=== PATIENT | female | born 1985 | race Caucasian/White ===

== ENCOUNTER 2017-11-01 11:48 | Emergency (ER) | payer BC, MEDICAID ==
[~2017-11-01] VITALS: Ht 154.9 cm; Wt 70.9 kg
[~2017-11-01 11:48] MED LIST: LISI1TAB5 PO
[2017-11-01] MEDS ORDERED: ALBU0.63 NEB (12:15)
[2017-11-01] MEDS ORDERED: PANT20TA3 PO (12:15)
[2017-11-01 12:35] LABS: MICROSCOPIC INDICATED
[2017-11-01 12:39] LABS: BASOPHILS # (AUTO) 0.04 x10^3/uL (0-0.1); BASOPHILS % (AUTO) 1 % (0-1); EOSINOPHILS # (AUTO) 0.21 x10^3/uL (0-0.4); EOSINOPHILS % (AUTO) 3 % (1-7); LYMPHOCYTES # (AUTO) 2.66 x10^3/uL (1-3.4); LYMPHOCYTES % (AUTO) 35 % (22-44); MD NO; MEAN CORPUSCULAR HEMOGLOBIN 33.1 pg (27.0-34.8); MEAN CORPUSCULAR VOLUME 97.3 fL (80-100); MEAN PLATELET VOLUME 8.1 fL (7.4-10.4); MONOCYTES % (AUTO) 5 % (2-9); NEUTROPHILS # (AUTO) 4.21 x10^3/uL (1.8-6.8); NEUTROPHILS % (AUTO) 56 % (42-75); PLATELET COUNT 315 x10^3/uL (130-400); RED BLOOD COUNT 4.34 x10^6/uL (3.82-5.3); RED CELL DISTRIBUTION WIDTH 12.8 % (9.6-15.2)
[2017-11-01 12:40] LABS: CULTURE INDICATED? NO
[2017-11-01 12:52] LABS: ALANINE AMINOTRANSFERASE 32 U/L (12-78); ALBUMIN 3.4 g/dL (3.4-5.0); ANION GAP 7 mmol/L (5-15); CALCIUM 8.6 mg/dL (8.5-10.1); CHLORIDE 107 mmol/L (98-107); CREATININE 0.77 mg/dL (0.55-1.02)
[2017-11-01 12:57] LABS: ALKALINE PHOSPHATASE 67 U/L (45-117); BILIRUBIN,TOTAL 0.3 mg/dL (0.2-1.0); TOTAL PROTEIN 6.6 g/dL (6.4-8.2)
[2017-11-01 13:23] VITALS: BP 145/82
== END 2017-11-01 14:17 | disposition home or self-care (01) ==
LOC: ED 14:10
DX: R19.7 Diarrhea, unspecified (principal); I10 Essential (primary) hypertension; J45.909 Unspecified asthma, uncomplicated
CPT/HCPCS: 36415; 74021; 80053; 81001; 83690; 84703; 85025; 99285

== ENCOUNTER 2017-11-12 16:11 | Emergency (ER) | payer BC, MEDICAID ==
[~2017-11-12] VITALS: Ht 154.9 cm; Wt 71.2 kg
[~2017-11-12 16:11] MED LIST changes: +ALBU0.63 NEB; +PANT20TA3 PO
[2017-11-12 18:03] VITALS: BP 120/89
[2017-11-12] MEDS ORDERED: ACETAMINOPHEN 500 MG TABLET ONE (19:39)
[2017-11-12] MEDS ORDERED: ACETAMINOPHEN 500 MG TABLET PO ONE (20:00)
== END 2017-11-12 20:52 | disposition home or self-care (01) ==
LOC: ED 20:50
DX: S06.0X0A Concussion without loss of consciousness, initial encounter (principal); S16.1XXA Strain of muscle, fascia and tendon at neck level, initial encounter; S46.012A Strain of muscle(s) and tendon(s) of the rotator cuff of left shoulder, initial encounter; S46.812A Strain of other muscles, fascia and tendons at shoulder and upper arm level, left arm, initial encounter; I10 Essential (primary) hypertension; J45.909 Unspecified asthma, uncomplicated; Z90.710 Acquired absence of both cervix and uterus; Y04.0XXA Assault by unarmed brawl or fight, initial encounter; Y93.89 Activity, other specified; Y92.098 Other place in other non-institutional residence as the place of occurrence of the external cause; Y99.8 Other external cause status
CPT/HCPCS: 70450; 72050; 99284

== ENCOUNTER 2018-11-21 03:23 | Inpatient (IN) | payer BC, MEDICAID, OTHER ==
[~2018-11-21] VITALS: Ht 157.5 cm; Wt 68.9 kg
--- NOTE | 2018-11-21 03:45 | NUR ---
PT IN HOSPITAL GOWN. ALL BELONGINGS BAGGED TAGGED AND PLACED IN CLOTHING CLOSET. PT STATED HER LAST SA WAS WITH PILLS A FEW YEARS AGO. PT ON CARDIAC AND VITALS MONITORS. PT STATED SHE IS SUPPOSED TO BE ON WELLBUTRIN, BUT TOOK HERSELF OFF, FOR UNKNOWN REASON AT THIS TIME.
[2018-11-21 03:48] LABS: BASOPHILS # (AUTO) 0.13 x10^3/uL (0-0.1); BASOPHILS % (AUTO) 2 % (0-1); EOSINOPHILS # (AUTO) 0.15 x10^3/uL (0-0.4); EOSINOPHILS % (AUTO) 2 % (1-7); LYMPHOCYTES # (AUTO) 3.03 x10^3/uL (1-3.4); LYMPHOCYTES % (AUTO) 41 % (22-44); MD NO; MEAN CORPUSCULAR HEMOGLOBIN 31.3 pg (27.0-34.8); MEAN CORPUSCULAR HGB CONC 32.2 g/dL (32.4-35.8); MEAN CORPUSCULAR VOLUME 96.9 fL (80-100); MEAN PLATELET VOLUME 7.8 fL (7.4-10.4); MONOCYTES # (AUTO) 0.16 x10^3/uL (0.2-0.8); MONOCYTES % (AUTO) 2 % (2-9); NEUTROPHILS # (AUTO) 3.86 x10^3/uL (1.8-6.8); NEUTROPHILS % (AUTO) 53 % (42-75); PLATELET COUNT 312 x10^3/uL (130-400); RED BLOOD COUNT 4.72 x10^6/uL (3.82-5.3); RED CELL DISTRIBUTION WIDTH 13.1 % (9.6-15.2)
[2018-11-21 03:54] LABS: ALANINE AMINOTRANSFERASE 19 U/L (12-78); ALBUMIN 3.7 g/dL (3.4-5.0); ANION GAP 11 mmol/L (5-15); CALCIUM 8.6 mg/dL (8.5-10.1); CHLORIDE 108 mmol/L (98-107); CREATININE 0.76 mg/dL (0.55-1.02)
[2018-11-21 04:01] LABS: ACETAMINOPHEN < 2 mcg/mL (10-30); ALKALINE PHOSPHATASE 80 U/L (45-117); BILIRUBIN,TOTAL 0.1 mg/dL (0.2-1.0); SALICYLATE LEVEL 2.8 mg/dL (2.8-20.0); TOTAL PROTEIN 6.8 g/dL (6.4-8.2)
[2018-11-21 04:29] LABS: AMPHETAMINE SCREEN, URINE Positive (Negative); BARBITURATE SCREEN, URINE Negative (Negative); BENZODIAZEPINE SCREEN, URINE Negative (Negative); CANNABINOID SCREEN, URINE Positive (Negative); COCAINE SCREEN, URINE Negative (Negative); METHADONE SCREEN, URINE Negative (Negative); OPIATE SCREEN, URINE Negative (Negative)
[2018-11-21] MEDS ORDERED: PROMETHAZINE 25 MG/ML, 1ML IM PRN (05:00)
[2018-11-21] MEDS ORDERED: POTASSIUM CHLORIDE 20 MEQ TAB.ER.PRT PO ONE (05:00)
[2018-11-21] MEDS ORDERED: LABETALOL 5MG/ML, 20ML IVPush PRN (05:00)
[2018-11-21] MEDS: ENOXAPARIN 40 MG/0.4 ML SQ SCH (05:00)
[2018-11-21] MEDS ORDERED: ACETAMINOPHEN 325 MG TABLET PO PRN (05:00)
--- NOTE | 2018-11-21 05:04 | NUR ---
REPORT TO NANO LOZADA FOR ROOM 426 WITH SITTER.
--- NOTE | 2018-11-21 05:10 | NUR ---
PT ELOPED OUT AMBULANCE BAY. PT WAS UNABLE TO BE REDIRECTED BACK TO ROOM. SECURITY WAS CALLED. [employer] WAS CALLED.
--- NOTE | 2018-11-21 05:18 | NUR ---
went in to tell pt that she was being admitted to floor. found pt with IV pulled out and blood dripping on floor as pt was cleaning her arm. this RN asked pt what she is doing. pt stated I'm leaving, I don't want to be here. pt made aware that she is on a legal hold placed by the police. pt shouted, "for 6 fucking pills??!!. I'm not staying". ASked pt if i could inform the ERP about her wanting to leave, pt stated that's fine. ERP made aware, stated pt can not leave due to legal hold. charge made aware also of pts' intention to leave. pt informed that she can not leave. pt stated, "well i'm not staying just to go to a mental facility". pt walked out of room in hospital gown and no shoes. charge aware pt left. security called and [employer] called as well. pt found in ambulance bay by security and brought back to ER. This RN explained to pt again, why she has to stay. PT again shouted, "for 6 fucking pills, No, give me my stuff!!" pt attempted to walk out of room again security assited pt back to bed. Restraints applied. 4th floor RN updated to pt current situation.
--- NOTE | 2018-11-21 05:31 | NUR ---
PT UPSET AND TEARFUL AND CURSING. DOES NOT WANT TO TALK TO THIS RN NOR RT AT THIS TIME. IS ASKING TO BE LEFT ALONE. WILL CONTINUE TO MONITOR.
[2018-11-21] MEDS ORDERED: ZIPRASIDONE 20 MG INJ IM ONE ×2 (05:42→06:00)
--- NOTE | 2018-11-21 06:02 | NUR ---
PT HAS RELAXED SOME. PT AGREEABLE TO ORDERED IM [facility] AFTER EXPLAINATION OF MED. PT ALSO ALLOWED IV AND MONITORS TO BE PLACED. SECURITY CALLED TO ASSIST WITH TRANFER UPSTAIRS. NANO LOZADA AWARE.
[2018-11-21 06:32] VITALS: BP 137/96
[2018-11-21 08:00] VITALS: BP 108/73
[2018-11-21] MEDS: POTASSIUM CHLORIDE 20 MEQ, MAGNESIUM SULFATE 2 GM, THIAMINE 200 MG, MVI ADULT 10 ML, FO... IV SCH ×2 (08:19→18:26)
[2018-11-21 14:00] VITALS: BP 124/72
[2018-11-21 15:51] VITALS: BP 132/70
[2018-11-21] MEDS: NICOTINE 14MG/24 HR PATCH.TD24 TD SCH (17:09)
[2018-11-21 18:57] VITALS: BP 132/86
[2018-11-22] MEDS: POTASSIUM CHLORIDE 20 MEQ, MAGNESIUM SULFATE 2 GM, THIAMINE 200 MG, MVI ADULT 10 ML, FO... IV SCH (01:17)
[2018-11-22 03:36] VITALS: BP 143/95
[2018-11-22] MEDS: ENOXAPARIN 40 MG/0.4 ML SQ SCH (04:24)
[2018-11-22] MEDS: NICOTINE 14MG/24 HR PATCH.TD24 TD SCH (04:25)
[2018-11-22 04:57] LABS: CHLORIDE 110 mmol/L (98-107)
[2018-11-22 05:04] LABS: ANION GAP 5 mmol/L (5-15); CALCIUM 8.1 mg/dL (8.5-10.1); CREATININE 0.76 mg/dL (0.55-1.02)
[2018-11-22 07:44] VITALS: BP 132/94
[2018-11-22] MEDS ORDERED: LORazepam 1MG TABLET PO PRN (09:30)
[2018-11-22] MEDS ORDERED: LORazepam 0.5MG TABLET PO PRN (09:30)
[2018-11-22] MEDS: THIAMINE 100MG TABLET PO SCH (10:00)
[2018-11-22] MEDS: MULTIVIT.W/IRON, MINERALS ORAL SOL PO SCH (10:00)
[2018-11-22] MEDS: FOLIC ACID 1 MG TABLET PO SCH (10:01)
[2018-11-22 13:53] VITALS: BP 136/94
[2018-11-22 20:04] VITALS: BP 156/117
[2018-11-22] MEDS ORDERED: hydrALAzine 20 MG/ML, 1ML IV PRN (20:30)
[2018-11-22] MEDS: FAMOTIDINE 20 MG TABLET PO SCH (20:54)
[2018-11-22 21:27] VITALS: BP 132/90
[2018-11-23 01:14] VITALS: BP 116/82
[2018-11-23] MEDS: NICOTINE 14MG/24 HR PATCH.TD24 TD SCH (04:43)
[2018-11-23] MEDS: ENOXAPARIN 40 MG/0.4 ML SQ SCH (04:43)
[2018-11-23 07:06] VITALS: BP 136/95
[2018-11-23] MEDS: MULTIVIT.W/IRON, MINERALS ORAL SOL PO SCH (08:07)
[2018-11-23] MEDS: FOLIC ACID 1 MG TABLET PO SCH (08:07)
[2018-11-23] MEDS: THIAMINE 100MG TABLET PO SCH (08:07)
[2018-11-23] MEDS: BUDESONIDE 0.5 MG/2 ML INHA HHN SCH ×2 (10:30→20:30)
[2018-11-23] MEDS ORDERED: FLUTICASONE/VILANTEROL 200-25MCG/INH INH SCH (10:30)
[2018-11-23] MEDS: ALBUTEROL SULFATE 2.5 MG/3 ML HHN SCH ×3 (10:30→20:30)
[2018-11-23 12:30] VITALS: BP 144/105
[2018-11-23] MEDS: LORazepam 1MG TABLET PO PRN (13:08)
[2018-11-23 13:38] VITALS: BP 144/105
[2018-11-23 19:49] VITALS: BP 127/86
[2018-11-23] MEDS: FAMOTIDINE 20 MG TABLET PO SCH (20:12)
[2018-11-24] MEDS: ALBUTEROL SULFATE 2.5 MG/3 ML HHN SCH ×2 (02:59→07:03)
[2018-11-24] MEDS: ENOXAPARIN 40 MG/0.4 ML SQ SCH (07:02)
[2018-11-24 07:24] VITALS: BP 130/94
[2018-11-24] MEDS: NICOTINE 14MG/24 HR PATCH.TD24 TD SCH (08:22)
[2018-11-24] MEDS: FOLIC ACID 1 MG TABLET PO SCH (08:22)
[2018-11-24] MEDS: THIAMINE 100MG TABLET PO SCH (08:22)
[2018-11-24] MEDS: MULTIVIT.W/IRON, MINERALS ORAL SOL PO SCH (08:23)
[2018-11-24] MEDS: FLUTICASONE/VILANTEROL 200-25MCG/INH INH SCH (11:39)
[2018-11-24] MEDS: LORazepam 1MG TABLET PO PRN ×2 (12:57→20:47)
[2018-11-24 19:01] VITALS: BP 144/99
[2018-11-24] MEDS: FAMOTIDINE 20 MG TABLET PO SCH (20:47)
[2018-11-25] MEDS: ENOXAPARIN 40 MG/0.4 ML SQ SCH (05:00)
[2018-11-25] MEDS: MULTIVITAMIN 1 TABLET PO SCH (07:47)
[2018-11-25] MEDS: THIAMINE 100MG TABLET PO SCH (07:47)
[2018-11-25] MEDS: FOLIC ACID 1 MG TABLET PO SCH (07:47)
[2018-11-25] MEDS: FLUTICASONE/VILANTEROL 200-25MCG/INH INH SCH (07:48)
[2018-11-25] MEDS: NICOTINE 14MG/24 HR PATCH.TD24 TD SCH (07:48)
[2018-11-25 08:32] VITALS: BP 144/101
[2018-11-25] MEDS: LISINOPRIL 20 MG TABLET PO SCH (08:54)
[2018-11-25] MEDS: HYDROCHLOROTHIAZIDE 12.5 MG CAPSULE PO SCH (09:28)
[2018-11-25 09:56] VITALS: BP 147/99
[2018-11-25 12:06] VITALS: BP 133/90
[2018-11-25 20:00] VITALS: BP 130/90
[2018-11-25] MEDS: LORazepam 1MG TABLET PO PRN (20:21)
[2018-11-25] MEDS: FAMOTIDINE 20 MG TABLET PO SCH (20:21)
[2018-11-26] MEDS: ENOXAPARIN 40 MG/0.4 ML SQ SCH (05:00)
[2018-11-26 07:13] VITALS: BP 148/98
[2018-11-26] MEDS: FOLIC ACID 1 MG TABLET PO SCH (09:24)
[2018-11-26] MEDS: HYDROCHLOROTHIAZIDE 12.5 MG CAPSULE PO SCH (09:24)
[2018-11-26] MEDS: MULTIVITAMIN 1 TABLET PO SCH (09:24)
[2018-11-26] MEDS: THIAMINE 100MG TABLET PO SCH (09:25)
[2018-11-26] MEDS: LISINOPRIL 20 MG TABLET PO SCH (09:25)
[2018-11-26] MEDS: FLUTICASONE/VILANTEROL 200-25MCG/INH INH SCH (09:33)
[2018-11-26] MEDS: NICOTINE 14MG/24 HR PATCH.TD24 TD SCH (09:36)
[2018-11-26] MEDS: DIVALPROEX 500 MG TABLET.DR PO SCH (17:38)
[2018-11-26 19:20] VITALS: BP 136/80
[2018-11-26] MEDS: FAMOTIDINE 20 MG TABLET PO SCH (20:44)
[2018-11-26] MEDS: LORazepam 1MG TABLET PO PRN (20:44)
[2018-11-27] MEDS: ENOXAPARIN 40 MG/0.4 ML SQ SCH (05:00)
[2018-11-27 07:05] VITALS: BP 138/90
[2018-11-27] MEDS: DIVALPROEX 500 MG TABLET.DR PO SCH (07:28)
[2018-11-27] MEDS: FLUTICASONE/VILANTEROL 200-25MCG/INH INH SCH (08:30)
[2018-11-27] MEDS: HYDROCHLOROTHIAZIDE 12.5 MG CAPSULE PO SCH (08:31)
[2018-11-27] MEDS: MULTIVITAMIN 1 TABLET PO SCH (08:31)
[2018-11-27] MEDS: FOLIC ACID 1 MG TABLET PO SCH (08:31)
[2018-11-27] MEDS: LISINOPRIL 20 MG TABLET PO SCH (08:32)
[2018-11-27] MEDS: THIAMINE 100MG TABLET PO SCH (08:32)
[2018-11-27] MEDS: NICOTINE 14MG/24 HR PATCH.TD24 TD SCH (09:00)
[2018-11-27] MEDS ORDERED: LISI1TAB5 PO (11:14)
[2018-11-27] MEDS ORDERED: DIVA-61 PO (11:14)
[2018-11-27] MEDS ORDERED: THIA100T67 PO (11:14)
== END 2018-11-27 12:05 | disposition home or self-care (01) | DRG 918 ==
LOC: ED 04:33 → EDIP 04:34 → 4WST 06:23 → 2N 11-23 12:16
PROVIDERS: ADMIT Family Medicine; ATTEND Family Medicine
DX: T46.4X2A Poisoning by angiotensin-converting-enzyme inhibitors, intentional self-harm, initial encounter (principal); J45.901 Unspecified asthma with (acute) exacerbation; T43.292A Poisoning by other antidepressants, intentional self-harm, initial encounter; Y92.89 Other specified places as the place of occurrence of the external cause; E87.6 Hypokalemia; F10.229 Alcohol dependence with intoxication, unspecified; F12.10 Cannabis abuse, uncomplicated; F15.10 Other stimulant abuse, uncomplicated; F17.210 Nicotine dependence, cigarettes, uncomplicated; F31.9 Bipolar disorder, unspecified; F51.5 Nightmare disorder; I10 Essential (primary) hypertension; Z62.810 Personal history of physical and sexual abuse in childhood; K21.9 Gastro-esophageal reflux disease without esophagitis; Z56.0 Unemployment, unspecified; Z91.14 Patient's other noncompliance with medication regimen; Z91.410 Personal history of adult physical and sexual abuse; Z91.5 Personal history of self-harm; Z98.84 Bariatric surgery status; Z98.891 History of uterine scar from previous surgery; Z90.710 Acquired absence of both cervix and uterus
CPT/HCPCS: 36415; 99285; J7042; J7613; J7626; 80048; 80053; 80307; 81025; 83735; 85025; 93005; 94640; 96372; G0378; J1650; J3411; J3475; J3480; J3486; J0360